=== PATIENT | male | born 1960 | race American Indian/Alaskan Native ===

== ENCOUNTER 2016-12-05 07:56 | Emergency (ER) | payer OTHER ==
--- NOTE | 2016-12-05 11:03 | Emergency Department Report ---
- General Chief complaint: Skin/Abscess/Foreign Body Stated complaint: right ear pain Time Seen by Provider: 12/05/16 10:47 Source: patient Mode of arrival: Ambulatory Limitations: No Limitations - History of Present Illness Initial comments: Patient reports that he has part of radio earpiece stuck in his right ear. He said it's been there since which has been 2 days ago. He reports nagging in dull pain at 4 out of 10. Denies any drainage. He said his hearing to the right ear is muffled. He attempted to take earplugs out but was unsuccessful. complaint: foreign body (right ear) Onset/Timin -: days(s) Tetanus Up to Date: yes Location: head (Rt ear) Severity: mild Severity scale (0 -10): 2 Quality: dull Consistency: constant Improves with: none Worsens with: none Context: other (Foreign body in RT ear) Associated symptoms: denies other symptoms, itching Treatments Prior to Arrival: none, other (Attempted to remove at home) - Related Data Previous Rx's Medication Instructions Recorded Last Taken Type Antipyrine/Benzocaine/Glycerin 2 drops AU Q8HR PRN #1 bottle 12/05/16 Unknown Rx [Auralgan Otic] Neomy/Polymyx B/Hc (Otic) Soln 4 drops OTIC TID #1 bottle 12/05/16 Unknown Rx [Cortisporin (Otic) Soln] Abscess Boil HPI - HPI Chief Complaint: Skin/Abscess/Foreign Body Stated Complaint: right ear pain Time Seen by Provider: 12/05/16 10:47 Home Medications: Previous Rx's Medication Instructions Recorded Last Taken Type Antipyrine/Benzocaine/Glycerin 2 drops AU Q8HR PRN #1 bottle 12/05/16 Unknown Rx [Auralgan Otic] Neomy/Polymyx B/Hc (Otic) Soln 4 drops OTIC TID #1 bottle 12/05/16 Unknown Rx [Cortisporin (Otic) Soln] ED Review of Systems ROS: Stated complaint: right ear pain Other details as noted in HPI Comment: All other systems reviewed and negative Constitutional: no symptoms reported Eyes: denies: eye pain, vision change ENT: ear pain, other (Foreign body in ear) Respiratory: no symptoms reported Cardiovascular: denies: chest pain, palpitations, edema, syncope Musculoskeletal: denies: back pain, joint swelling, arthralgia, myalgia Skin: denies: rash Neurological: denies: headache, weakness, numbness, paresthesias, confusion, abnormal gait, vertigo ED Past Medical Hx - Past Medical History Previous Medical History?: No - Surgical History Past Surgical History?: No - Family History Family history: no significant (Single) - Social History Smoking Status: Never Smoker Substance Use Type: Alcohol - Medications Home Medications: Home Medications Medication Instructions Recorded Confirmed Last Taken Type Antipyrine/Benzocaine/Glycerin 2 drops AU Q8HR PRN #1 bottle 12/05/16 Unknown Rx [Auralgan Otic] Neomy/Polymyx B/Hc (Otic) Soln 4 drops OTIC TID #1 bottle 12/05/16 Unknown Rx [Cortisporin (Otic) Soln] ED Physical Exam - General Limitations: No Limitations General appearance: alert, in no apparent distress - Head Head exam: Present: atraumatic, normocephalic, normal inspection - Eye Eye exam: Present: normal appearance, PERRL, EOMI. Absent: nystagmus Pupils: Present: normal accommodation - ENT ENT exam: Present: normal exam, normal orophraynx, mucous membranes moist, normal external ear exam, other (Rt ear canal noted Rt EAC. Tragus NTTp). Absent: TM's normal bilaterally - Respiratory Respiratory exam: Present: normal lung sounds bilaterally. Absent: respiratory distress, wheezes, chest wall tenderness, accessory muscle use - Cardiovascular Cardiovascular Exam: Present: regular rate, normal rhythm, normal heart sounds - GI/Abdominal GI/Abdominal exam: Present: soft, normal bowel sounds. Absent: distended, tenderness, guarding, rebound, rigid, organomegaly, mass, bruit - Extremities Exam Extremities exam: Present: normal inspection, full ROM, normal capillary refill. Absent: tenderness, pedal edema, joint swelling, calf tenderness - Back Exam Back exam: Present: normal inspection, full ROM. Absent: tenderness, CVA tenderness (R), CVA tenderness (L), muscle spasm, paraspinal tenderness, vertebral tenderness, rash noted - Neurological Exam Neurological exam: Present: alert, oriented X3, normal gait, reflexes normal. Absent: motor sensory deficit - Psychiatric Psychiatric exam: Present: normal affect, normal mood - Skin Skin exam: Present: warm, dry, intact, normal color. Absent: rash ED Course Vital Signs 12/05/16 08:02 Temperature 97.9 F Pulse Rate 78 Respiratory 18 Rate Blood Pressure 157/114 O2 Sat by Pulse 99 Oximetry Vital Signs 12/05/16 12/05/16 08:02 11:28 Temperature 97.9 F Pulse Rate 78 Respiratory 18 Rate Blood Pressure 157/114 Blood Pressure 160/100 [Left] O2 Sat by Pulse 99 Oximetry - Reevaluation(s) Reevaluation #1: 12/05/16 11:37 Patient had uneventful ED stay. Foreign body removal from right ear. - Foreign Body Removal Ear Location: ear canal (R) Foreign Body Suspected: styrofoam (soft, spongy, fully intact ear plug piece removed from right ear canal) If Insect Suspected: no insect seen Foreign Body Removed: yes Foreign Body Removal Technique: instrumentation (alligator clip) Tympanic Membrane Intact: Yes (right EAC but mild swelling and erythema) Patient Tolerated Procedure: well Complications: none Additional Comments: Intact airplane piece removed from right ear canal. Fully removed without any difficulties. Patient with minor EAC redness and swelling ED Medical Decision Making - Medical Decision Making ED course: Patient is here with complaints of dullness to her right ear with foreign body in right ear. Physical findings for foreign body to right ear which was fully removed. Post removal of foreign body, patient with minor otitis externa. Bilateral TMs pearly bae without any perfume or perforation. Patient with dull pain to right ear. Post removal of foreign body, normal hearing. Patient instructed to avoid placed in object in ear. See procedure note for full detail on foreign body removal. Patient discharged home to follow up with his primary care physician which she said he does have one in 3- 5 days. Patient with right ear foreign body which is slowly removed, otalgia right ear and otitis Externa right ear Procedure: Foreignbody for the removed from right ear. Patient discharged home with prescription for Corticosporin otic eardrops and Auralgan for ear pain/infection. He was instructed to follow-up with his primary care physician in 3-5 days Critical care attestation.: If time is entered above; I have spent that time in minutes in the direct care of this critically ill patient, excluding procedure time. ED Disposition Clinical Impression: Foreign body in right ear, initial encounter, Personal history of retained foreign body fully removed, Otalgia of right ear, Elevated blood pressure reading without diagnosis of hypertension Otitis externa Qualifiers: Otitis externa type: other infective Chronicity: acute Laterality: right Qualified Code(s): H60.391 - Other infective otitis externa, right ear Disposition: DC-01 TO HOME OR SELFCARE Is pt being admited?: No Does the pt Need Aspirin: No Condition: Stable Instructions: Ear Foreign Body (ED), Earache (ED), Otitis Externa (ED), Heart Healthy Diet (ED), Hypertension (ED) Additional Instructions: Please use medications as instructed Follow up with PCP in 3-5 days Your Blood pressure was elevated today but got better, please follow up with PCP and keep a log of your blood pressure while waiting for appointment. Prescriptions: Antipyrine/Benzocaine/Glycerin [Auralgan Otic] 2 drops AU Q8HR PRN #1 bottle PRN Reason: RT EAR PAIN Neomy/Polymyx B/Hc (Otic) Soln [Cortisporin (Otic) Soln] 4 drops OTIC TID #1 bottle Referrals: PRIMARY CARE, [Primary Care Provider] - 3-5 Days Forms: Work/School Release Form(ED)
[2016-12-05 12:21] VITALS: BP 169/99
== END 2016-12-05 11:58 | disposition home or self-care (01) ==
LOC: ED 07:56
DX: T16.1XXA Foreign body in right ear, initial encounter (principal); H60.391 Other infective otitis externa, right ear; X58.XXXA Exposure to other specified factors, initial encounter; Y93.9 Activity, unspecified; Y99.9 Unspecified external cause status; Y92.9 Unspecified place or not applicable

== ENCOUNTER 2021-06-18 09:56 | Outpatient (CLI) | payer OTHER ==
--- NOTE | 2021-06-18 19:14 | XRay Report ---
LUMBAR SPINE 3 VIEWS INDICATION: BACK PAIN COMPARISON: None. FINDINGS: No acute, displaced fracture is seen. There is mild diffuse height loss within the L2-L4 vertebral lilli dies, this does not appear acute. Alignment is within normal limits. There is mild lower lumbar spondylosis. IMPRESSION: 1. No acute findings. 2. Degenerative changes, as above. Signer Name: Gaudencio Benitez MD Signed: 06/18/2021 7:10 PM Workstation Name: [id number]
== END 2021-06-18 09:57 | disposition home or self-care (01) ==
LOC: XRAY 09:56
PROVIDERS: ATTEND Internal Medicine
DX: M47.816 Spondylosis without myelopathy or radiculopathy, lumbar region (principal)
CPT/HCPCS: 72100